=== PATIENT | female | born 2000 | race Native Hawaiian/Other Pacific Islander ===

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

== ENCOUNTER 2020-01-15 09:11 | Outpatient (CLI) | payer OTHER | END 2020-01-15 23:20 | disposition home or self-care (01) | LOC: LABW 09:11 | DX: Z34.82 Encounter for supervision of other normal pregnancy, second trimester (principal) | CPT/HCPCS: 36415; 82105; 82677; 84702; 86336 ==

== ENCOUNTER 2022-01-01 19:45 | Emergency (ER) | payer OTHER ==
[~2022-01-01] VITALS: Ht 157.5 cm; Wt 68.0 kg
[2022-01-01 22:03] VITALS: BP 109/69; TEMP 99.1
== END 2022-01-01 22:01 | disposition home or self-care (01) ==
LOC: ED 19:45
DX: J10.1 Influenza due to other identified influenza virus with other respiratory manifestations (principal); R07.89 Other chest pain; J40 Bronchitis, not specified as acute or chronic; Z20.822 Contact with and (suspected) exposure to COVID-19
CPT/HCPCS: 36415; 81025; 84484; 87502; 87635; 87651; 93005; 99283; U0003

== ENCOUNTER 2022-04-12 12:51 | Outpatient (CLI) | payer OTHER ==
[2022-04-12 13:44] LABS: PLATELET COUNT 336 K/uL (152-353)
== END 2022-04-12 21:35 | disposition home or self-care (01) ==
LOC: LABW 12:51
PROVIDERS: ATTEND Nurse Practitioner Family
DX: J20.9 Acute bronchitis, unspecified (principal); J01.90 Acute sinusitis, unspecified; Z11.52 Encounter for screening for COVID-19
CPT/HCPCS: 85027; 87502; 87635; U0003